=== PATIENT | female | born 1940 | race African-American/Black ===

== ENCOUNTER 2016-12-30 10:15 | Emergency (ER) | payer MEDICARE ==
[~2016-12-30] VITALS: Ht 149.9 cm; Wt 42.0 kg
[2016-12-30] MEDS ORDERED: METHYLPREDNISOLONE SOD SUCC 125 MG/2 ML VIAL IV STA (10:46)
[2016-12-30] MEDS ORDERED: IPRATROPIUM BROMIDE (0.02%) 0.5MG/2.5ML NEB HHN STA (10:46)
[2016-12-30] MEDS ORDERED: ALBUTEROL (0.083%) 2.5MG/3ML NEB HHN STA ×2 (10:46→12:53)
[2016-12-30] MEDS ORDERED: MAGNESIUM 2 G PREMIX 50 ML IV ONE (11:00)
[2016-12-30] MEDS ORDERED: ALBUTEROL (0.5%) 2.5MG/0.5ML NEB HHN ONE (11:03)
[2016-12-30] MEDS ORDERED: IPRATROPIUM BROMIDE (0.02%) 0.5MG/2.5ML NEB ONE (11:03)
[2016-12-30] MEDS ORDERED: ALBUTEROL (0.083%) 2.5MG/3ML NEB ONE ×2 (11:03→13:10)
[2016-12-30 11:26] LABS: BASOPHILS % 1.6 % (0.0-2.0); EOSINOPHILS % 3.3 % (0.0-5.0); HEMATOCRIT. 36.4 % (36.0-48.0); HEMOGLOBIN. 12.3 g/dL (12.0-16.0); LYMPHOCYTES % 17.4 % (20.0-50.0); MEAN CORPUSCULAR HEMOGLOBIN 30.7 pg (28.0-32.0); MEAN CORPUSCULAR VOLUME 90.8 fL (81.0-99.0); MEAN PLATELET VOLUME 7.4 fl (7.4-10.4); MONOCYTES % 8.8 % (2.0-8.0); NEUTROPHILS % 68.9 % (40.0-76.0); PLATELET 271 x1000/uL (130-400); RED BLOOD CELL COUNT 4.02 mill/uL (4.2-5.4); RED CELL DISTRIBUTION WIDTH 13.5 % (11.6-14.6)
[2016-12-30 11:30] LABS: PROTHROMBIN TIME 10.5 sec
[2016-12-30 11:32] LABS: CARBON DIOXIDE 30 mEq/L (21-32); CHLORIDE 105 mEq/L (98-107)
[2016-12-30 11:40] LABS: TROPONIN I < 0.02 ng/mL (0.00-0.04)
[2016-12-30 12:16] VITALS: BP 154/87
== END 2016-12-30 14:24 | disposition home or self-care (01) ==
LOC: ER 10:43
DX: J44.1 Chronic obstructive pulmonary disease with (acute) exacerbation (principal); Z88.0 Allergy status to penicillin; I10 Essential (primary) hypertension; Z87.891 Personal history of nicotine dependence
CPT/HCPCS: 36415; 71010; 80053; 83605; 83690; 83880; 84484; 85025; 85610; 87040; 93005; 94640; 96365; 96375; 99285; J2930; J3475; J7611

== ENCOUNTER 2017-03-13 10:59 | Observation (INO) | payer MEDICARE ==
[~2017-03-13] VITALS: Ht 149.9 cm; Wt 41.3 kg
[2017-03-13 12:06] LABS: HEMATOCRIT. 38.6 % (36.0-48.0); HEMOGLOBIN. 12.9 g/dL (12.0-16.0); MEAN CORPUSCULAR HEMOGLOBIN 30.3 pg (28.0-32.0); PLATELET 374 x1000/uL (130-400); RED BLOOD CELL COUNT 4.25 mill/uL (4.2-5.4); RED CELL DISTRIBUTION WIDTH 14.8 % (11.6-14.6)
[2017-03-13 12:17] LABS: CARBON DIOXIDE 30 mEq/L (21-32); CHLORIDE 106 mEq/L (98-107)
[2017-03-13 12:37] LABS: PLATELET ESTIMATE NORMAL
[2017-03-13] MEDS ORDERED: SODIUM CHLORIDE 0.9% 10ML VIAL ONE (13:54)
[2017-03-13] MEDS ORDERED: IOHEXOL-350 100 ML BOTTLE ONE (13:54)
[2017-03-13] MEDS ORDERED: AZITHROMYCIN 500 MG in DEXT 5% WATER 250 ML IV SCH (14:45)
[2017-03-13] MEDS ORDERED: SODIUM CHLORIDE 0.9% 1,000 ML IV ONE (14:45)
[2017-03-13 17:57] VITALS: BP 189/86
[2017-03-13 18:01] VITALS: BP 189/86
[2017-03-13] MEDS ORDERED: BUDE6HFA INH (18:18)
[2017-03-13] MEDS ORDERED: BENA20TA3 PO (18:18)
[2017-03-13 20:00] VITALS: BP 169/78
[2017-03-13] MEDS ORDERED: ACETAMINOPHEN 325MG TABLET PO PRN (20:45)
[2017-03-13] MEDS ORDERED: ONDANSETRON HCL 4MG/2ML VIAL IV PRN (20:45)
[2017-03-13] MEDS ORDERED: DOCUSATE SODIUM 100MG CAPSULE PO PRN (20:45)
[2017-03-13] MEDS ORDERED: DEXT 5%/0.45% NACL 1000ML 1,000 ML IV SCH (21:15)
[2017-03-13] MEDS ORDERED: ENOXAPARIN 30MG/0.3ML SYR SUBCUT SCH (21:30)
[2017-03-13] MEDS ORDERED: METHYLPREDNISOLONE SOD SUCC 125 MG/2 ML VIAL IV SCH (22:00)
[2017-03-13] MEDS ORDERED: CLONIDINE 0.1MG TABLET PO PRN (22:45)
[2017-03-13] MEDS ORDERED: LEVOFLOXACIN 500MG PREMIX 100 ML IV SCH (23:00)
[2017-03-14] VITALS: BP 175/84
[2017-03-14 04:00] VITALS: BP 190/108
[2017-03-14] MEDS ORDERED: CLONIDINE 0.1MG TABLET PO NR (05:15)
[2017-03-14] MEDS ORDERED: GUAIFENESIN 200MG/10ML SUGAR FREE UDC PO PRN (05:30)
[2017-03-14] MEDS: METHYLPREDNISOLONE SOD SUCC 40 MG/ML VIAL IV SCH ×2 (05:42→14:11)
[2017-03-14] MEDS ORDERED: GUAIFENESIN 200MG TABLET PO PRN (07:00)
[2017-03-14 07:09] LABS: HEMOGLOBIN. 12.4 g/dL (12.0-16.0); MEAN CORPUSCULAR HEMOGLOBIN 31.4 pg (28.0-32.0); MEAN CORPUSCULAR VOLUME 93.7 fL (81.0-99.0); MEAN PLATELET VOLUME 8.1 fl (7.4-10.4); PLATELET 365 x1000/uL (130-400); RED BLOOD CELL COUNT 3.94 mill/uL (4.2-5.4); RED CELL DISTRIBUTION WIDTH 14.6 % (11.6-14.6)
[2017-03-14 07:37] LABS: CARBON DIOXIDE 25 mEq/L (21-32); CHLORIDE 106 mEq/L (98-107); HDL CHOLESTEROL 56 mg/dL (40-59); LDL CHOLESTEROL 75 mg/dL (5-100); T4 FREE 1.32 ng/dL (0.76-1.46)
[2017-03-14 08:04] VITALS: BP 146/78
[2017-03-14] MEDS ORDERED: BENAZEPRIL 10MG TABLET PO SCH (09:00)
[2017-03-14] MEDS ORDERED: PNEUMOCOCCAL 23-VAL P-SAC VAC 0.5 ML IM ONE (09:00)
[2017-03-14] MEDS ORDERED: ASPIRIN 81MG EC TABLET PO SCH (09:00)
[2017-03-14] MEDS: IPRATROPIUM/ALBUTEROL 0.5-3(2.5)MG/3ML NEB INH SCH ×2 (09:45→14:00)
[2017-03-14 11:50] VITALS: BP 118/68
[2017-03-14 13:41] LABS: PLATELET ESTIMATE NORMAL
== END 2017-03-14 15:50 | disposition home or self-care (01) ==
LOC: ER 10:59 → INTOOBSV 16:07 → 6WST 16:07 → ENRESERV 16:42
PROVIDERS: ADMIT Internal Medicine; ATTEND Internal Medicine
DX: R06.02 Shortness of breath (principal); R05 Cough; I10 Essential (primary) hypertension; J44.9 Chronic obstructive pulmonary disease, unspecified
CPT/HCPCS: 36415; 71010; 71275; 80048; 80053; 80061; 84439; 84443; 84484; 85007; 85025; 85027; 85379; 87040; 90471; 93005; 96361; 96365; 96367; 96372; 96375; 96376; 99285; A4216; G0378; J0456; J1650; J1956; J2920; J2930; Q9967; 90732; J3490; J7030; J7060; J7620

== ENCOUNTER 2017-11-02 12:52 | Inpatient (IN) | payer MEDICARE ==
[~2017-11-02] VITALS: Ht 149.9 cm; Wt 43.5 kg
[~2017-11-02 12:52] MED LIST: BENA20TA3 PO; BUDE6HFA INH
[2017-11-02] MEDS ORDERED: ALBUTEROL (0.083%) 2.5MG/3ML NEB HHN STA (14:14)
[2017-11-02] MEDS ORDERED: METHYLPREDNISOLONE SOD SUCC 125 MG/2 ML VIAL IV STA (14:14)
[2017-11-02] MEDS ORDERED: IPRATROPIUM BROMIDE (0.02%) 0.5MG/2.5ML NEB HHN STA (14:14)
[2017-11-02 14:44] LABS: HEMATOCRIT. 36.2 % (36.0-48.0); HEMOGLOBIN. 12.3 g/dL (12.0-16.0); MEAN CORPUSCULAR HEMOGLOBIN 30.4 pg (28.0-32.0); MEAN CORPUSCULAR VOLUME 89.7 fL (81.0-99.0); MEAN PLATELET VOLUME 7.8 fl (7.4-10.4); PLATELET 359 x1000/uL (130-400); RED BLOOD CELL COUNT 4.04 mill/uL (4.2-5.4); RED CELL DISTRIBUTION WIDTH 13.7 % (11.6-14.6)
[2017-11-02 14:56] LABS: CHLORIDE 108 mEq/L (98-107)
[2017-11-02 14:58] LABS: PLATELET ESTIMATE NORMAL
[2017-11-02] MEDS ORDERED: LEVOFLOXACIN 750MG PREMIX 150 ML IV ONE (17:00)
[2017-11-02 20:49] VITALS: BP 140/63
[2017-11-02] MEDS ORDERED: AMLO2.5T45 PO (21:00)
[2017-11-02] MEDS ORDERED: FLUT15.88 NS (21:00)
[2017-11-02] MEDS ORDERED: HYDROCODONE/ACETAMINOPHEN 5/325MG TABLET PO PRN (21:30)
[2017-11-02] MEDS ORDERED: ACETAMINOPHEN 325MG TABLET PO PRN (21:30)
[2017-11-02] MEDS ORDERED: SODIUM CHLORIDE 0.45% 1,000 ML IV SCH (22:30)
[2017-11-03] VITALS: BP 154/80
[2017-11-03] MEDS ORDERED: LEVOFLOXACIN 500MG PREMIX 100 ML IV SCH
[2017-11-03 04:34] VITALS: BP 127/72
[2017-11-03] MEDS ORDERED: PANTOPRAZOLE 40MG DR TABLET PO SCH (07:20)
[2017-11-03 07:35] LABS: BASOPHILS % 0.4 % (0.0-2.0); HEMATOCRIT. 34.3 % (36.0-48.0); HEMOGLOBIN. 11.3 g/dL (12.0-16.0); LYMPHOCYTES % 8.8 % (20.0-50.0); MEAN CORPUSCULAR HEMOGLOBIN 29.6 pg (28.0-32.0); MEAN CORPUSCULAR VOLUME 89.8 fL (81.0-99.0); NEUTROPHILS % 85.8 % (40.0-76.0); PLATELET 357 x1000/uL (130-400); RED BLOOD CELL COUNT 3.82 mill/uL (4.2-5.4); RED CELL DISTRIBUTION WIDTH 13.7 % (11.6-14.6)
[2017-11-03 07:52] VITALS: BP 135/62
[2017-11-03 08:47] LABS: CHLORIDE 106 mEq/L (98-107)
[2017-11-03] MEDS: ASPIRIN 325MG TABLET PO SCH (10:21)
[2017-11-03] MEDS: ATENOLOL 50 MG TABLET PO SCH ×2 (10:21→20:51)
[2017-11-03] MEDS: METHYLPREDNISOLONE SOD SUCC 40 MG/ML VIAL IV SCH (10:21)
[2017-11-03] MEDS: ENOXAPARIN 30MG/0.3ML SYR SUBCUT SCH (10:22)
[2017-11-03 12:00] VITALS: BP 129/80
[2017-11-03 16:31] VITALS: BP 137/70
[2017-11-03] MEDS ORDERED: AZITHROMYCIN 500 MG TABLET PO SCH (18:00)
[2017-11-03 19:21] LABS: T4 FREE 1.19 ng/dL (0.76-1.46)
[2017-11-03 20:00] VITALS: BP 133/62
[2017-11-03] MEDS ORDERED: FAMOTIDINE 20MG TABLET PO SCH (21:00)
[2017-11-03] MEDS: IPRATROPIUM/ALBUTEROL 0.5-3(2.5)MG/3ML NEB HHN SCH (21:01)
[2017-11-04] VITALS: BP 148/80
[2017-11-04] MEDS ORDERED: LEVOFLOXACIN 250MG PREMIX 50 ML IV SCH
[2017-11-04] MEDS: IPRATROPIUM/ALBUTEROL 0.5-3(2.5)MG/3ML NEB HHN SCH ×2 (01:35→14:32)
[2017-11-04 04:00] VITALS: BP 132/69
[2017-11-04 06:47] LABS: HEMATOCRIT 35.7 % (36.0-48.0); HEMOGLOBIN 11.6 g/dL (12.0-16.0); MEAN CORPUSCULAR HEMOGLOBIN 29.3 pg (28.0-32.0); MEAN CORPUSCULAR VOLUME 90.6 fL (81.0-99.0); PLATELET 369 x1000/uL (130-400); RED BLOOD CELL COUNT 3.94 mill/uL (4.2-5.4); RED CELL DISTRIBUTION WIDTH 13.7 % (11.6-14.6)
[2017-11-04 07:14] LABS: CHLORIDE 109 mEq/L (98-107)
[2017-11-04 07:21] LABS: HDL CHOLESTEROL 66 mg/dL (40-59); LDL CHOLESTEROL 79 mg/dL (5-100)
[2017-11-04 08:15] VITALS: BP 114/60
[2017-11-04] MEDS: ASPIRIN 325MG TABLET PO SCH (08:58)
[2017-11-04] MEDS: ATENOLOL 50 MG TABLET PO SCH (08:59)
[2017-11-04] MEDS: ENOXAPARIN 30MG/0.3ML SYR SUBCUT SCH (08:59)
[2017-11-04] MEDS: METHYLPREDNISOLONE SOD SUCC 40 MG/ML VIAL IV SCH (09:00)
[2017-11-04 12:31] VITALS: BP 131/57
[2017-11-04 14:32] VITALS: BP 131/57
[2017-11-04 17:17] VITALS: BP 136/59
== END 2017-11-04 18:20 | disposition home or self-care (01) | DRG 189 ==
LOC: ER 13:24 → 6WST 17:02 → ENRESERV 18:12
PROVIDERS: ADMIT Internal Medicine; ATTEND Internal Medicine
DX: J96.00 Acute respiratory failure, unspecified whether with hypoxia or hypercapnia (principal); E46 Unspecified protein-calorie malnutrition; Z99.81 Dependence on supplemental oxygen; J44.1 Chronic obstructive pulmonary disease with (acute) exacerbation; Z68.1 Body mass index [BMI] 19.9 or less, adult; E05.90 Thyrotoxicosis, unspecified without thyrotoxic crisis or storm; D64.9 Anemia, unspecified; I10 Essential (primary) hypertension; J06.9 Acute upper respiratory infection, unspecified; Z79.51 Long term (current) use of inhaled steroids; Z87.891 Personal history of nicotine dependence; Z88.0 Allergy status to penicillin; Z79.899 Other long term (current) drug therapy
CPT/HCPCS: 36415; 71045; 80048; 80053; 80061; 83036; 83605; 83690; 83880; 84439; 84443; 84481; 84484; 85025; 85027; 87040; 93005; 94640; 94664; 96374; 99285; J1650; J1956; J2920; J2930; J7040; J7611; J7620

== ENCOUNTER 2021-04-23 11:42 | Emergency (ER) | payer BC, MEDICARE ==
[~2021-04-23] VITALS: Ht 157.5 cm; Wt 45.0 kg
[~2021-04-23 11:42] MED LIST changes: +AMLO2.5T45 PO; +BENA20TA10 PO; -BENA20TA3 PO; +FLUT15.844 NS
[2021-04-23] MEDS ORDERED: ACETAMINOPHEN 325MG TABLET PO ONE (13:00)
[2021-04-23 13:08] LABS: HEMATOCRIT. 34.5 % (36.0-48.0); HEMOGLOBIN. 11.3 g/dL (12.0-16.0); MEAN CORPUSCULAR HEMOGLOBIN 27.9 pg (28.0-32.0); MEAN CORPUSCULAR VOLUME 85.2 fL (81.0-99.0); MEAN PLATELET VOLUME 7.8 fl (7.4-10.4); PLATELET 295 x1000/uL (130-400); RED BLOOD CELL COUNT 4.06 mill/uL (4.2-5.4); RED CELL DISTRIBUTION WIDTH 14.5 % (11.6-14.6)
[2021-04-23 13:10] LABS: CHLORIDE 105 mEq/L (98-107)
[2021-04-23 13:55] LABS: PLATELET ESTIMATE NORMAL
[2021-04-23 14:25] LABS: CLARITY URINE CLEAR (CLEAR); COLOR URINE YELLOW (YELLOW); KETONES URINE TRACE (NEGATIVE); LEUKOCYTE ESTERASE URINE 1+ (NEGATIVE); NITRITE URINE NEGATIVE (NEGATIVE); OCCULT BLOOD URINE NEGATIVE (NEGATIVE); PROTEIN URINE TRACE (NEGATIVE); SPECIFIC GRAVITY URINE 1.014 (1.005-1.030)
[2021-04-23] MEDS ORDERED: CEFTRIAXONE 1 G PREMIX 50 ML IV ONE (16:30)
[2021-04-23 18:25] VITALS: BP 146/65
== END 2021-04-23 20:37 | disposition short-term general hospital (02) ==
LOC: ER 11:42
DX: N39.0 Urinary tract infection, site not specified (principal); M54.5 Low back pain; I10 Essential (primary) hypertension; J44.9 Chronic obstructive pulmonary disease, unspecified
CPT/HCPCS: 36415; 74176; 80048; 80076; 81003; 83690; 84484; 85025; 87086; 87426; 93005; 96365; 99285; J0696